=== PATIENT | female | born 1960 | race Caucasian/White ===

== ENCOUNTER → 2020-11-11 09:05 | Outpatient (CLI) | payer BC, SELFPAY ==
--- NOTE | 2020-11-11 | DI.MRI.S_ITS ---
PROCEDURE: MR CERVICAL SPINE WO CON INDICATIONS: Cervicalgia TECHNIQUE: Noncontrast sagittal T1 spin echo and T2 fast spin echo, sagittal STIR, foraminal oblique sagittal T2 fast spin echo, and axial gradient echo or T2 fast spin echo through the cervical spine. COMPARISON: None. FINDINGS: Image quality: Excellent. Alignment and Curvature: Reversal of the normal cervical lordosis. Bone Marrow: No acute fracture identified. Multilevel degenerative endplate sclerosis and spurring. Diffuse facet arthropathy. Spinal Cord: Visualized spinal cord has normal size and signal. No cerebellar tonsillar herniation. Paraspinous Soft Tissues: No paravertebral masses. Prevertebral soft tissues are normal in thickness. C2-C3: No canal or left foraminal narrowing. Mild right foraminal stenosis. C3-C4: Mild canal narrowing. Severe left foraminal stenosis with nerve root compression. Mild to moderate right foraminal narrowing. C4-C5: Mild canal narrowing. Severe right foraminal stenosis with nerve root compression. Mild left foraminal stenosis. C5-C6: No definite canal stenosis. Severe bilateral foraminal stenosis with nerve root compression. C6-C7: Mild canal narrowing. Severe right foraminal stenosis with nerve root compression. Mild left foraminal narrowing. C7-T1: Mild canal narrowing. Severe right foraminal stenosis with nerve root compression. Mild to moderate left foraminal stenosis. IMPRESSION: Severe multilevel bilateral foraminal stenoses as detailed above by spinal level. No high-grade canal narrowing. Reversal of the normal cervical lordosis. Dictated by: Keny Stevenson M.D. on 11/11/2020 at 10:17 Approved by: Keny Stevenson M.D. on 11/11/2020 at 10:21
== END ==
PROVIDERS: PCP Physician Assistant; Referring Provider Physician Assistant; Visit Provider Physician Assistant
DX: M54.12 Radiculopathy, cervical region (principal); M54.2 Cervicalgia; M48.02 Spinal stenosis, cervical region; M62.838 Other muscle spasm; S16.1XXD Strain of muscle, fascia and tendon at neck level, subsequent encounter; S29.019D Strain of muscle and tendon of unspecified wall of thorax, subsequent encounter
CPT/HCPCS: 72141

== ENCOUNTER 2021-02-05 09:44 | Emergency (ER) | payer BC, SELFPAY ==
[2021-02-05] VITALS (8 sets, daily range): BP systolic 121–183; BP diastolic 70–92; PULSE 52–67; RESP 16–21; TEMP 36.8; O2SAT 93–97
--- NOTE | 2021-02-05 09:55 | DI.CT.S_ITS ---
PROCEDURE: CT CERVICAL SPINE WO CON INDICATIONS: Fall, right-sided paraspinal pain TECHNIQUE: Noncontrast 3 mm thick sections acquired from the skull base to the T4 level. Sagittal and coronal reformats were then constructed. For radiation dose reduction, the following was used: automated exposure control, adjustment of mA and/or kV according to patient size. COMPARISON: None. FINDINGS: Image quality: Excellent. Bones: No fractures or dislocations. Visualized superior ribs are intact. Multilevel uncovertebral joint hypertrophy with significant bony foraminal narrowing bilaterally at C5-C6 and C6-C7. Soft tissues: Prevertebral soft tissues are normal in thickness. No paravertebral hematomas. No apical pneumothoraces. IMPRESSION: 1. No evidence acute cervical fracture or dislocation. 2. Cervical spondylitic change. Dictated by: Prosper Lua M.D. on 02/05/2021 at 10:36 Approved by: Prosper Lua M.D. on 02/05/2021 at 10:38
--- NOTE | 2021-02-05 09:55 | DI.CT.S_ITS ---
PROCEDURE: CT FACIAL BONES WO CON INDICATIONS: Fall, swelling around right eye TECHNIQUE: Noncontrast 2.5 mm thick axial images acquired from the mandible through the frontal sinuses, with coronal and sagittal reformatting. For radiation dose reduction, the following was used: automated exposure control, adjustment of mA and/or kV according to patient size. COMPARISON: [facility], CT, CT CERVICAL SPINE WO CON, 02/05/2021, 10:10. FINDINGS: Image quality: Excellent. Bones and teeth: Orbital hampton are intact. Sinus hampton show no fracture or deformity. Nasal bones and septum are intact. Visualized portions of the mandible demonstrate no fractures or subluxation. Zygomatic arches are intact. Pterygoid plates are intact. Visualized portions of the skull base and auditory canals are intact. Sinuses: Paranasal sinuses are aerated, without fluid levels, mucosal thickening, or mucoceles. Mastoid air cells are aerated. Soft tissues: Right periorbital swelling. Unremarkable appearance of right lobe and orbit. Otherwise, no edema, masses, or fluid collections. Shotty bilateral cervical lymph nodes, likely reactive. No soft tissue lacerations or debris. Vascular: Visualized vascular structures appear normal in the absence of contrast. Bony vascular foramina and canals are intact. IMPRESSION: 1. Right periorbital swelling. 2. No displaced facial fracture or mandibular fracture. Dictated by: Prosper Lua M.D. on 02/05/2021 at 10:39 Approved by: Prosper Lua M.D. on 02/05/2021 at 10:44
--- NOTE | 2021-02-05 09:55 | DI.CT.S_ITS ---
PROCEDURE: CT HEAD/BRAIN WO CON INDICATIONS: fall and severe headache TECHNIQUE: Noncontrast 4.5 mm thick angled axial sections acquired from the foramen magnum to the vertex, with coronal and sagittal reformats. For radiation dose reduction, the following was used: automated exposure control, adjustment of mA and/or kV according to patient size. COMPARISON: None. FINDINGS: Image quality: Excellent. CSF spaces: Basal cisterns are patent. No extra-axial fluid collections. The ventricles are symmetric in size and shape. Brain: No intracranial bleeds or masses. There is cerebral volume loss for age, with resultant ventricular and sulcal prominence. There are periventricular and deep white matter chronic small vessel ischemic changes. There is intracranial internal carotid artery atherosclerosis. Skull and face: Calvarium and visualized facial bones appear intact, without suspicious lesions. Sinuses: Visualized sinuses and mastoids are clear. IMPRESSION: No evidence of acute stroke, hemorrhage, or mass. No significant sequelae of acute intracranial trauma. Dictated by: Prosper Lua M.D. on 02/05/2021 at 10:35 Approved by: Prosper Lua M.D. on 02/05/2021 at 10:36
--- NOTE | 2021-02-05 09:55 | DI.RAD.S_ITS ---
PROCEDURE: XR SHOULDER RT MIN 2V INDICATIONS: Fall right-sided shoulder pain TECHNIQUE: 3 views of the shoulder were acquired. COMPARISON: None. FINDINGS: Bones: No acute fracture. Mild AC joint degeneration. Anatomic alignment. Soft tissues: No suspicious soft tissue calcifications. IMPRESSION: No acute fracture. If the patient's pain or other symptoms persist, consider further evaluation with MRI Dictated by: Keny Stevenson M.D. on 02/05/2021 at 10:17 Approved by: Keny Stevenson M.D. on 02/05/2021 at 10:18
--- NOTE | 2021-02-05 09:55 | ED.GENADULT ---
HPI - General Adult General Chief complaint: Syncope Stated complaint: nausea, dizziness, fainting Time Seen by Provider: 02/05/21 09:49 Source: patient Mode of arrival: Ambulatory History of Present Illness HPI narrative: Patient is a 60-year-old female. Was sent over from the walk-in clinic for evaluation of injuries that she sustained yesterday. She states that she was laughing so hard yesterday where she thinks that she passed out. She fell forward. Hit the right side of her face on the ground. She did have a headache. She thinks she was only out for seconds. Since that time she has had a severe headache, right shoulder pain which she has had in the past but she felt like that she has aggravated since the fall. Is also having right-sided neck pain. Bruising around her right eye. No problems seeing. She is not on anticoagulation. Has never had anything like this in the past. Related Data Previous Rx's Medication Instructions Recorded ondansetron 4 mg disintegrating 4 mg PO Q6H PRN #10 tab 02/05/21 tablet Allergies Allergy/AdvReac Type Severity Reaction Status Date / Time codeine AdvReac Intermediate Nausea Verified 02/05/21 09:58 Review of Systems Constitutional Constitutional: Denies fever(s) and Reports headache(s) Eyes Comments: Swelling around the right eye, no vision changes ENT Ears, Nose, Mouth, and Throat: Reports headache(s) Comments: Nosebleed yesterday but none currently. No loose teeth. No missing teeth. Cardiovascular Cardiovascular: Reports system reviewed and no additional complaints, except as documented Respiratory Respiratory: Reports system reviewed and no additional complaints, except as documented Gastrointestinal Gastrointestinal: Reports nausea and Denies vomiting Genitourinary Genitourinary: Reports system reviewed and no additional complaints, except as documented Musculoskeletal Comments: Neck pain, right shoulder pain Integumentary/Breasts Comments: Bruising around right eye Neurologic Neurologic: Reports headache(s) Hematologic/Lymphatic On Anticoagulants: No Patient History Social History lives independently: Yes Smoking Status: Former smoker Exam Initial Vital Signs Initial Vital Signs: Vital Signs Temperature 98.2 F 02/05/21 09:50 Pulse Rate 67 02/05/21 09:50 Respiratory Rate 16 02/05/21 09:50 Blood Pressure 183/90 H 02/05/21 09:50 Pulse Oximetry 97 02/05/21 09:50 Const General: cooperative, comfortable, well developed and well groomed HENMT Head: normal to inspection and atraumatic Ears: hearing grossly normal bilaterally Nose: external nose normal Mouth: oral mucosae normal Teeth and gingiva: dentition normal Eyes Periorbital: periorbital findings abnormal right periorbital swelling, periorbital erythema and periorbital ecchymosis; Negative for no crepitus Pupils: PERRL EOM: EOM intact bilaterally Resp Effort & Inspection: normal respiratory effort Auscultation: clear to auscultation bilaterally Cardio Rate: regular rate Rhythm: regular rhythm GI Inspection: normal to inspection Back/Spine/Pelvis Cervical Spine: cervical muscular tenderness Skin Other: Bruising around the right eye. No active bleeding. Neuro General: patient alert, patient awake, patient oriented x3 and moves all extremities Cranial Nerves: CN's II-XI intact bilaterally Speech: speech normal Gait: normal gait Motor: muscle tone normal throughout Sensory Exam: no sensory deficits noted Extrem Other: Patient with tenderness to palpation throughout the right shoulder. Does have full range of motion of this joint. Her left upper extremity pelvis and bilateral lower extremities are unremarkable. Psych Appearance: grossly normal Scores GCS [place] coma scale eye opening: Spontaneous [place] coma scale verbal response: Orientated [place] coma scale motor response: Obey commands Krystina coma scale total score: 15 Course Orders Ordered: ED Orders 02/05/21 09:55 CT cervical spine wo con Stat CT facial bones wo con Stat CT head/brain wo con Stat XR shoulder RT min 2V Stat 02/05/21 09:57 EKG-12 Lead Stat Vital Signs Vital signs: Vital Signs - 8 hr 02/05/21 09:50 02/05/21 09:51 02/05/21 09:52 Temperature 98.2 F Pulse Rate 67 65 Respiratory Rate 16 Blood Pressure 183/90 H 183/90 H Pulse Oximetry 97 93 95 02/05/21 10:00 02/05/21 10:01 02/05/21 10:21 Temperature Pulse Rate 56 L 60 55 L Respiratory Rate 18 21 20 Blood Pressure 154/92 H 149/87 H Pulse Oximetry 97 97 97 Medical Decision Making Imaging Data Extremity x-ray #1: Radiologist's Impression: [address] [address] XRay Report Signed Patient: NAVIN Raphael MR#: [id number] : 1960 Acct:[id number] Age/Sex: 60 / F Date of Service: 02/05/21 Loc: ED Accession Number: [id number] ?? Procedure: XR shoulder RT min 2V Ordering Provider: Javier Lynn D.O. PROCEDURE:? XR SHOULDER RT MIN 2V ? INDICATIONS:? Fall right-sided shoulder pain ? TECHNIQUE:? 3 views of the shoulder were acquired.? ? COMPARISON:? None. ? FINDINGS:? ? Bones:? No acute fracture.? Mild AC joint degeneration.? Anatomic alignment. ? Soft tissues:? No suspicious soft tissue calcifications.? ? IMPRESSION:? ? No acute fracture. If the patient's pain or other symptoms persist, consider further evaluation with MRI ? ? ? Dictated by: Keny Stevenson M.D. on 02/05/2021 at 10:17 ? ? Approved by: Keny Stevenson M.D. on 02/05/2021 at 10:18? CT scan - head: Radiologist's Impression: [place] [address] CT Scan Report Signed Patient: NAVIN Raphael MR#: [id number] : 1960 Acct:[id number] Age/Sex: 60 / F Date of Service: 02/05/21 Loc: ED Accession Number: [id number] ?? Procedure: CT head/brain wo con Ordering Provider: Javier Lynn D.O. PROCEDURE:? CT HEAD/BRAIN WO CON ? INDICATIONS:? fall and severe headache ? TECHNIQUE:? Noncontrast 4.5 mm thick angled axial sections acquired from the foramen magnum to the vertex, with coronal and sagittal reformats.? For radiation dose reduction, the following was used:? automated exposure control, adjustment of mA and/or kV according to patient size.? ? COMPARISON:? None. ? FINDINGS:? Image quality:? Excellent.? ? CSF spaces:? Basal cisterns are patent.? No extra-axial fluid collections.? The ventricles are symmetric in size and shape.? ? Brain:? No intracranial bleeds or masses.? There is cerebral volume loss for age, with resultant ventricular and sulcal prominence.? There are periventricular and deep white matter chronic small vessel ischemic changes.? There is intracranial internal carotid artery atherosclerosis.? ? Skull and face:? Calvarium and visualized facial bones appear intact, without suspicious lesions.? ? Sinuses:? Visualized sinuses and mastoids are clear.? ? IMPRESSION:? No evidence of acute stroke, hemorrhage, or mass.? No significant sequelae of acute intracranial trauma. ? ? Dictated by: Prosper Lua M.D. on 02/05/2021 at 10:35 ? ? Approved by: Prosper Lua M.D. on 02/05/2021 at 10:36?? CT face: Radiologist's Impression: [address] [address] [address] Scan Report Signed Patient: NAVIN Raphael MR#: [id number] : 1960 Acct:[id number] Age/Sex: 60 / F Date of Service: 02/05/21 Loc: ED Accession Number: [id number] ?? Procedure: CT facial bones wo con Ordering Provider: Javier Lynn D.O. PROCEDURE:? CT FACIAL BONES WO CON ? INDICATIONS:? Fall, swelling around right eye ? TECHNIQUE:? Noncontrast 2.5 mm thick axial images acquired from the mandible through the frontal sinuses, with coronal and sagittal reformatting.? For radiation dose reduction, the following was used:? automated exposure control, adjustment of mA and/or kV according to patient size.? ? COMPARISON:? [facility], CT, CT CERVICAL SPINE WO CON, 02/05/2021, 10:10. ? FINDINGS:? Image quality:? Excellent.? ? Bones and teeth:? Orbital hampton are intact.? Sinus hampton show no fracture or deformity.? Nasal bones and septum are intact.? Visualized portions of the mandible demonstrate no fractures or subluxation.? Zygomatic arches are intact.? Pterygoid plates are intact.? Visualized portions of the skull base and auditory canals are intact.? ? Sinuses:? Paranasal sinuses are aerated, without fluid levels, mucosal thickening, or mucoceles.? Mastoid air cells are aerated.? ? Soft tissues:? Right periorbital swelling.? Unremarkable appearance of right lobe and orbit.? Otherwise, no edema, masses, or fluid collections.? Shotty bilateral cervical lymph nodes, likely reactive.? No soft tissue lacerations or debris.? ? Vascular:? Visualized vascular structures appear normal in the absence of contrast.? Bony vascular foramina and canals are intact.? ? IMPRESSION:? 1. Right periorbital swelling. 2. No displaced facial fracture or mandibular fracture.? ? ? Dictated by: Prosper Lua M.D. on 02/05/2021 at 10:39 ? ? Approved by: Prosper Lua M.D. on 02/05/2021 at 10:44?? CT - cervical spine: Radiologist's Impression: [place] [address] CT Scan Report Signed Patient: NAVIN Raphael MR#: [id number] : 1960 Acct:[id number] Age/Sex: 60 / F Date of Service: 02/05/21 Loc: ED Accession Number: [id number] ?? Procedure: CT cervical spine wo con Ordering Provider: Javier Lynn D.O. PROCEDURE:? CT CERVICAL SPINE WO CON ? INDICATIONS:? Fall, right-sided paraspinal pain ? TECHNIQUE:? Noncontrast 3 mm thick sections acquired from the skull base to the T4 level.? Sagittal and coronal reformats were then constructed.? For radiation dose reduction, the following was used:? automated exposure control, adjustment of mA and/or kV according to patient size.? ? COMPARISON:? None. ? FINDINGS:? Image quality:? Excellent.? ? Bones:? No fractures or dislocations.? Visualized superior ribs are intact.? Multilevel uncovertebral joint hypertrophy with significant bony foraminal narrowing bilaterally at C5-C6 and C6-C7. ? Soft tissues:? Prevertebral soft tissues are normal in thickness.? No paravertebral hematomas.? No apical pneumothoraces.? ? ? IMPRESSION:? ? 1. No evidence acute cervical fracture or dislocation. ? 2. Cervical spondylitic change.? Dictated by: Prosper Lua M.D. on 02/05/2021 at 10:36 ? ? Approved by: Prosper Lua M.D. on 02/05/2021 at 10:38 MDM Narrative Medical decision making narrative: Patient is alert oriented x3. GCS of 15. CT scan shows no signs of acute pathology. She does have bruising around the right eye. She also has a concussion based on her physical exam and presenting symptoms. I did discuss this with her. Will attempt to treat her symptoms with medications to include Zofran and Tylenol. She was given information with regard to concussions. She was given return precautions. She expressed understanding and agreement. Discharge Plan Departure Patient Disposition: Home Clinical Impression: Concussion, Contusion of eye, right, Syncope Instructions: DI for Concussion, DI for Syncope in Adults (Fainting) Activity Restrictions/Additional Instructions: All of your CT scans and x-rays today do not show any signs of fractures. You do have a concussion based on your symptoms today. You can sleep like normal in eat like normal. You can take Tylenol for any headaches. Use the nausea medication as needed. Contact your primary doctor for a follow-up. Return to the emergency department for any new or worsening symptoms Prescriptions: New ondansetron 4 mg tablet,disintegrating 4 mg PO Q6H PRN (Reason: nausea and vomiting) Qty: 10 RF: 0 Referrals: Tracy Jha PA-C [Primary Care Provider] -
== END 2021-02-05 11:08 | disposition home or self-care (01) ==
PROVIDERS: Emergency Provider Emergency Medicine; PCP Physician Assistant
DX: R55 Syncope and collapse (principal); M54.2 Cervicalgia; M25.511 Pain in right shoulder; S05.11XA Contusion of eyeball and orbital tissues, right eye, initial encounter; G44.309 Post-traumatic headache, unspecified, not intractable; F07.81 Postconcussional syndrome; W18.30XA Fall on same level, unspecified, initial encounter
CPT/HCPCS: 36415; 70450; 70486; 72125; 73030; 99284

== ENCOUNTER → 2021-12-29 16:02 | Outpatient (CLI) | payer BC, OTHER, SELFPAY ==
--- NOTE | 2021-12-29 16:06 | DI.RAD.S_ITS ---
PROCEDURE: XR CHEST 2V INDICATIONS: Cough TECHNIQUE: 2 views of the chest were acquired. COMPARISON: None. FINDINGS: Surgical changes and devices: None. Lungs and pleura: Lungs are clear. No pleural effusions or pneumothorax. Mediastinum: Mediastinal contours are normal. Heart size is normal. Bones and chest wall: No suspicious bony abnormalities. Soft tissues appear unremarkable. Age-indeterminate mild wedging of some vertebral bodies. IMPRESSION: No acute radiographic abnormality. Dictated by: Andres Cerrato M.D. on 12/29/2021 at 16:39 Approved by: Andres Cerrato M.D. on 12/29/2021 at 16:40
== END ==
PROVIDERS: PCP Internal Medicine; Referring Provider Nurse Practitioner Family; Visit Provider Nurse Practitioner Family
DX: R05.9 Cough, unspecified (principal)
CPT/HCPCS: 71046

== ENCOUNTER → 2022-02-03 15:42 | Outpatient (CLI) | payer BC, OTHER, SELFPAY ==
--- NOTE | 2022-02-03 | DI.RAD.S_ITS ---
PROCEDURE: XR KNEE LT 3V INDICATIONS: LEFT KNEE PAIN TECHNIQUE: 4 views of the knee were acquired. COMPARISON: None. FINDINGS: Bones: No fractures or dislocations. 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 No suspicious bony lesions. Soft tissues: No joint effusion. No suspicious soft tissue calcifications. 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 No fracture or dislocation. No significant joint effusion. Dictated by: Ba Christie M.D. on 02/03/2022 at 16:40 Approved by: Ba Christie M.D. on 02/03/2022 at 16:40
== END ==
PROVIDERS: PCP Internal Medicine; Referring Provider Student in an Organized Health Care Education/Training Program; Visit Provider Student in an Organized Health Care Education/Training Program
DX: M25.562 Pain in left knee (principal); M17.12 Unilateral primary osteoarthritis, left knee
CPT/HCPCS: 73564

== ENCOUNTER → 2022-06-09 08:24 | Outpatient (CLI) | payer BC, OTHER, SELFPAY ==
[2022-06-09 08:55] LABS: Add Manual Diff / Slide Review NO; Basophils Absolute Auto 100 /uL (0-100); Basophils Percent Auto 1.4 % (0-2); Eosinophils Absolute Auto 600 /uL (0-450); Eosinophils Percent Auto 7.9 % (2-4); Hematocrit 38.4 % (36-46); Hemoglobin 12.4 g/dL (12.0-16.0); Lymphocytes Absolute Auto 2100 /uL (1100-4500); Lymphocytes Percent Auto 27.2 % (25-40); Mean Corpuscular HGB Conc 32.3 % (30-36); Mean Corpuscular Hemoglobin 28.3 PG (26-34); Mean Corpuscular Volume 87.7 fL (80-100); Monocytes Absolute Auto 500 /uL (0-900); Monocytes Percent Auto 5.8 % (3-14); Neutrophils Absolute Auto 4500 /uL (1500-7000); Neutrophils Percent Auto 57.7 % (50-75); Platelet Count 270 X10^3/uL (150-400); Red Blood Cell Count 4.38 X10^6/uL (4.0-5.2); Red Cell Distribution Width 14.4 % (11.6-14.8); White Blood Cell Count 7.8 X10^3/uL (4.5-11.0)
[2022-06-09 09:43] LABS: Alanine Aminotransferase 23 IU/L (<35); Alkaline Phosphatase 83 U/L (38-126); Aspartate Aminotransferase 31 IU/L (14-36); Bilirubin Total 0.4 mg/dL (0.2-1.3); Blood Urea Nitrogen 15 mg/dL (7-17); Calcium 9.1 mg/dL (8.4-10.2); Carbon Dioxide 29 mmol/L (22-32); Chloride 104 mmol/L (98-107); Cholesterol 183 mg/dL (140-199); Estimated Glomerular Filt Rate > 60 mL/min (>60); Glucose 94 mg/dL (80-110); HDL Cholesterol 61 mg/dL (40-60); LDL Cholesterol Calculated 99 mg/dL (<100); Potassium 3.8 mmol/L (3.4-5.1); Sodium 138 mmol/L (137-145); Total Protein 7.1 g/dL (6.3-8.2); Triglycerides 117 mg/dL (35-150)
[2022-06-09 10:14] LABS: TSH w/ Reflex to FT4 1.57 uIU/mL (0.47-4.68)
[2022-06-12 16:00] LABS: Albumin 3.9 g/dL (3.5-5.0); Albumin Globulin Ratio 1.2 (1.0-2.8); Globulin 3.2 g/dL (1.7-4.1); HEMOLYSIS 16 (0-50)
== END ==
PROVIDERS: PCP Family Medicine; Referring Provider Family Medicine; Visit Provider Family Medicine
DX: E78.00 Pure hypercholesterolemia, unspecified (principal); I10 Essential (primary) hypertension; K21.9 Gastro-esophageal reflux disease without esophagitis; Z13.9 Encounter for screening, unspecified
CPT/HCPCS: 36415; 80053; 80061; 84443; 85025

== ENCOUNTER → 2022-08-27 14:54 | Outpatient (CLI) | payer BC, OTHER, SELFPAY ==
--- NOTE | 2022-08-27 | DI.MG.S_ITS ---
BILATERAL DIGITAL SCREENING MAMMOGRAM 3D/2D WITH CAD: 08/27/2022 CLINICAL: Routine screening. Comparison is made to exams dated: 06/24/2020 mammogram, 03/06/2019 mammogram, and 02/27/2019 mammogram - [facility]. There are scattered areas of fibroglandular density in both breasts (category b / 25%-50% glandular tissue). Current study was also evaluated with a Computer Aided Detection (CAD) system. There is a biopsy clip in the left breast. No significant masses, calcifications, or other findings are seen in either breast. There has been no significant interval change. IMPRESSION: NEGATIVE There is no mammographic evidence of malignancy. A 1 year screening mammogram is recommended. Based on the Tyrer Cuzick model (a risk assessment model) the patient's lifetime risk is 4.8% and her 10 year risk is 2.1%. According to the ACR, ACS, and NCCN guidelines, an annual breast MRI exam along with mammogram is recommended if the patient's lifetime risk is 20% or greater. This exam was interpreted at Station ID: [id number]. NOTE: For mammograms, a report in lay terms will be sent to the patient. Approximately 15% of breast malignancies will not be visualized mammographically. In the management of a palpable breast mass, a negative mammogram must not discourage biopsy of a clinically suspicious lesion. Electronically Signed By: Merrill perkins/zain:08/27/2022 16:21:59 letter sent: Normal Exam ACR BI-RADS Category 1: Negative [id number]
== END ==
PROVIDERS: PCP Family Medicine; Referring Provider Family Medicine; Visit Provider Family Medicine
DX: Z12.31 Encounter for screening mammogram for malignant neoplasm of breast (principal)
CPT/HCPCS: 77063; 77067

== ENCOUNTER → 2022-09-14 09:17 | Outpatient (CLI) | payer BC, OTHER, SELFPAY ==
--- NOTE | 2022-09-14 09:18 | DI.CT.S_ITS ---
PROCEDURE: CT CHEST WO CON INDICATIONS: Low dose chest CT TECHNIQUE: Noncontrast 2.0-2.5 mm thick sections acquired from the pulmonary apices to the posterior costophrenic angles. 7 mm thick axial MIP, and 5 mm coronal and sagittal reformats were then acquired. A low radiation dose technique was utilized. COMPARISON: None. FINDINGS: Image quality: Diagnostic, given the low radiation dose technique. Lungs and pleura: No suspicious lung nodules. No pulmonary infiltrate or pleural effusion. Mediastinum: Heart size is normal. Mild coronary artery calcification. No pericardial effusion. No mediastinal adenopathy by size criteria. Thoracic aorta and central pulmonary arteries are normal in size. Esophagus is normal in caliber. No hiatal hernia. Bones and chest wall: No suspicious bony lesions. No vertebral body compression fractures. Moderate degenerative changes in thoracic spine. No axillary or supraclavicular adenopathy by size criteria. Thyroid gland is normal. Abdomen: Visualized upper abdomen solid organs and bowel loops appear normal in the absence of contrast. IMPRESSION: No suspicious lung nodules. LUNG-RADS 1; recommend annual screening lung CT in 12 months. Dictated by: Jody Terry M.D. on 09/14/2022 at 9:35 Approved by: Jody Terry M.D. on 09/14/2022 at 9:38
== END ==
PROVIDERS: PCP Family Medicine; Referring Provider Family Medicine; Visit Provider Family Medicine
DX: J44.9 Chronic obstructive pulmonary disease, unspecified (principal); I25.10 Atherosclerotic heart disease of native coronary artery without angina pectoris; R05.9 Cough, unspecified; Z87.891 Personal history of nicotine dependence
CPT/HCPCS: 71250

== ENCOUNTER 2022-10-13 07:49 | Day surgery (SDC) | payer BC, OTHER, SELFPAY ==
[2022-10-13] MEDS: LACTATED RINGERS 1,000 ML 200 ML IV (08:08)
[2022-10-13 08:12] VITALS: BP 122/84; PULSE 82; RESP 20; TEMP 36.1; O2SAT 96; BMI 35.9
--- NOTE | 2022-10-13 08:52 | PM.HP.1 ---
History of Present Illness History of Present Illness Date Patient Seen: 10/13/22 Time Patient Seen: 08:52 Chief complaint: PAC Narrative: 62-year-old woman personal history of colonic polyps here for colorectal screening by colonoscopy. Last colonoscopy approximately 7 years ago. No personal or family history of colon cancer. On further history denies any recent gastrointestinal symptoms. No nausea, vomiting, abdominal pain, loss of appetite, unexplained weight loss, change in bowel habits, or blood per rectum. [facility] Medical History Actinic keratosis (~2015) Ankle pain Carpal tunnel syndrome Cervical radiculopathy Cervical spine disease Cervical spondylosis Chronic back pain Colon polyps Congenital dysplasia of hips, bilateral Diverticular disease Fractures (~2009) GERD (gastroesophageal reflux disease) Hearing loss Hematuria (~1994) Hyperlipidemia Hypertension (~2009) Ovarian cyst Positive PPD Well adult exam Surgical History Anesthesia History of carpal tunnel release (~01/22/22) History of section (~1982) History of hysterectomy (~1984) Status post osteotomy (~2002) Trigger thumb of right hand (~05/26/22) Social History (System 02/06/21 @ 07:17 by Lady Trinity Estrada) household members: spouse lives independently: Yes Smoking Status: Former smoker alcohol intake: current Meds Home Medications and Allergies Home Medications Medication Instructions Recorded Confirmed Type atorvastatin 10 mg tablet 10 mg PO BEDTIME #90 tabs 06/16/22 10/13/22 Rx hydrochlorothiazide 12.5 mg tablet 12.5 mg PO DAILY #90 tabs 06/16/22 10/13/22 Rx losartan 50 mg tablet 50 mg PO DAILY #90 tabs 06/16/22 10/13/22 Rx gabapentin 300 mg capsule 300 mg PO TID #90 caps 07/17/22 10/13/22 Rx amlodipine 5 mg tablet 5 mg PO BID #90 tabs 09/17/22 10/13/22 Rx omeprazole 40 mg capsule,delayed 40 mg PO DAILY #90 caps 09/18/22 10/13/22 Rx release Allergies Allergy/AdvReac Type Severity Reaction Status Date / Time aspirin Allergy Intermediate Verified 10/13/22 08:09 adhesive tape AdvReac Severe Rash/Itch Verified 10/13/22 08:09 codeine AdvReac Intermediate Nausea Verified 10/13/22 08:09 Exam Vital Signs (past 8 hours): - 10/13/22 08:12 Temperature 96.9 F L Pulse Rate 82 Respiratory Rate 20 Blood Pressure 122/84 Pulse Oximetry 96 Oxygen Delivery Method Room Air Oxygen Delivery Method Room Air Narrative Exam Narrative: General adult woman alert oriented no acute distress Abdomen soft nontender nondistended. Assessment & Plan Assessment and plan (1) Colon polyps: Qualifiers: Colon polyp type: adenomatous Colon location: unspecified part of colon Qualified Code(s): D12.6 - Benign neoplasm of colon, unspecified Status: Acute Assessment & Plan narrative: The patient requires colorectal screening and colonoscopy is recommended. Technical details were discussed. Risks, benefits, alternatives explained. Risks including but not limited to myocardial infarction, aspiration, bleeding, pain, missed lesion, incomplete examination, need for further radiographic studies, colonic perforation, and need for major abdominal surgery were discussed. All questions were answered to their satisfaction, and they are in agreement with this plan.
--- NOTE | 2022-10-13 09:03 | P.OP.COLON_ITS ---
Operative Date/Time/Diagnoses Date of procedure: 10/13/22 Time of procedure: 09:04 Pre-op diagnosis: Personal history of colonic polyps Procedure & Clinicians Study performed: Colonoscopy Same procedure as scheduled: Yes Indications: 62-year-old woman here for colorectal screening personal history of colonic polyps. Surgeon: Dylon Aguilar Procedure Notes Procedure in detail: The history and physical was performed/updated and the patient is ASA class is 2. The procedure was discussed in detail with the patient. Potential risks complications including infection, bleeding, missed diagnosis, perforation, need for surgery, and were explained. Their questions were answered and informed consent was obtained. Patient was brought to the procedure room and placed standard monitoring equipment. The patient's vital signs were monitored continuously throughout the entire procedure. Prior to starting time-out was performed. The patient was placed in the left lateral recumbent position. Procedural sedation was administered by anesthesia. Examination began with a thorough inspection of the perianal area there was no evidence of fissures, fistulae, external hemorrhoids or cutaneous malignancy. The colonoscopy scope was then placed into the anal ca nal and was advanced to the cecum, which was identified by the ileocecal valve, the appendiceal orifice and the confluence of the taenia. The scope was then slowly withdrawn examining colon thoroughly in all directions, irrigating it of any residual stool. Colon was free from masses or polyps. Mild diverticulosis within the sigmoid colon and grade 1 internal hemorrhoids on retroflexion within the rectum. The patient tolerated the procedure well. They will be discharged once criteria are met. The prep was of good/excellent quality. The withdrawl time was 8 minutes. Specimen(s): none sent Impression: Normal colonoscopy Post-procedure Recommendations: Colonoscopy in 10 years and High fiber diet Disposition: same day surgery
[2022-10-13 09:29] VITALS: BP 128/87; PULSE 76; RESP 19; TEMP 36.5; O2SAT 96
[2022-10-13 09:33] VITALS: BP 127/72; BP 132/81; PULSE 74; PULSE 91; RESP 19; RESP 24; TEMP 36.6; O2SAT 98
[2022-10-13 09:44] VITALS: BP 146/91; PULSE 76; RESP 19; O2SAT 97
[2022-10-13 09:49] VITALS: BP 139/86; PULSE 80; RESP 18; O2SAT 97
== END 2022-10-13 10:11 | disposition home or self-care (01) ==
PROVIDERS: PCP Family Medicine; Referring Provider Surgery; Visit Provider Surgery
PROC: 0DJD8ZZ Inspection of Lower Intestinal Tract, Via Natural or Artificial Opening Endoscopic (ICD-10-PCS; CPT 45378; principal; 2022-10-13 09:00)
DX: Z12.11 Encounter for screening for malignant neoplasm of colon (principal); Z86.010 Personal history of colon polyps; K57.30 Diverticulosis of large intestine without perforation or abscess without bleeding; K64.0 First degree hemorrhoids
CPT/HCPCS: 45378; J2704

== ENCOUNTER → 2023-09-22 07:30 | Outpatient (CLI) | payer BC, OTHER, SELFPAY ==
--- NOTE | 2023-09-22 07:32 | DI.MG.S_ITS ---
BILATERAL DIGITAL SCREENING MAMMOGRAM 3D/2D WITH CAD: 09/22/2023 CLINICAL: Routine screening. Comparison is made to exams dated: 08/27/2022 mammogram - [facility], 06/24/2020 mammogram, and 03/06/2019 mammogram - [facility]. There are scattered areas of fibroglandular density in both breasts (category b / 25%-50% glandular tissue). Current study was also evaluated with a Computer Aided Detection (CAD) system. There is a biopsy clip in the left breast. No significant masses, calcifications, or other findings are seen in either breast. There has been no significant interval change. IMPRESSION: NEGATIVE There is no mammographic evidence of malignancy. A 1 year screening mammogram is recommended. Based on the Tyrer Cuzick model (a risk assessment model) the patient's lifetime risk is 4.7% and her 10 year risk is 2.1%. According to the ACR, ACS, and NCCN guidelines, an annual breast MRI exam along with mammogram is recommended if the patient's lifetime risk is 20% or greater. This exam was interpreted at Station ID: [id number]. NOTE: For mammograms, a report in lay terms will be sent to the patient. Approximately 15% of breast malignancies will not be visualized mammographically. In the management of a palpable breast mass, a negative mammogram must not discourage biopsy of a clinically suspicious lesion. Electronically Signed By: Asia hazel/zain:09/22/2023 11:29:33 letter sent: Normal Exam ACR BI-RADS Category 1: Negative [id number]
--- NOTE | 2023-09-22 07:32 | DI.CT.S_ITS ---
PROCEDURE: CT LUNG LOW DOSE SCREENING INDICATIONS: 1 year f/u screening TECHNIQUE: Noncontrast 2.0-2.5 mm thick sections acquired from the pulmonary apices to the posterior costophrenic angles. 7 mm thick axial MIP, and 5 mm coronal and sagittal reformats were then acquired. For radiation dose reduction, the following was used: automated exposure control, adjustment of mA and/or kV according to patient size. COMPARISON: [facility], CT, [facility], 09/14/2022, 9:22. FINDINGS: Image quality: Diagnostic. Lower Neck: No enlarged lymph nodes. Thyroid: No thyroid nodules which require sonographic follow up, per consensus guidelines. Axillae: No enlarged lymph nodes. Chest Wall: Unremarkable. Bones: Unremarkable. Lungs and Pleura: No pneumothorax or pleural effusions. No consolidation or suspicious nodules. Heart: Heart size is normal. No pericardial effusion. Severe LAD calcifications for age. Thoracic Vessels: The aorta and pulmonary arteries demonstrate normal size. Mediastinum and Nusrat: No enlarged lymph nodes. Esophagus: No wall thickening. No hiatal hernia. Upper Abdomen: Visualized upper abdomen solid organs and bowel loops appear normal. IMPRESSION: No suspicious pulmonary nodules. LUNG-RADS 1; continued annual screening, if eligible. Clinically Significant Non-pulmonary Findings: Marked coronary artery calcifications for age. Correlate with risk factors and advise counseling. Dictated by: Rayshawn Desouza M.D. on 09/22/2023 at 9:24 Approved by: Rayshawn Desouza M.D. on 09/22/2023 at 9:29
[2023-09-22 08:40] LABS: Add Manual Diff / Slide Review NO; Basophils Absolute Auto 200 /uL (0-100); Basophils Percent Auto 2.3 % (0-2); Eosinophils Absolute Auto 600 /uL (0-450); Eosinophils Percent Auto 7.4 % (2-4); Hematocrit 38.7 % (36-46); Hemoglobin 12.8 g/dL (12.0-16.0); Lymphocytes Absolute Auto 2800 /uL (1100-4500); Lymphocytes Percent Auto 33.5 % (25-40); Mean Corpuscular Hemoglobin 28.6 PG (26-34); Mean Corpuscular Volume 86.7 fL (80-100); Monocytes Absolute Auto 600 /uL (0-900); Monocytes Percent Auto 7.2 % (3-14); Neutrophils Absolute Auto 4100 /uL (1500-7000); Neutrophils Percent Auto 49.6 % (50-75); Platelet Count 272 X10^3/uL (150-400); Red Blood Cell Count 4.46 X10^6/uL (4.0-5.2); Red Cell Distribution Width 15.3 % (11.6-14.8); White Blood Cell Count 8.2 X10^3/uL (4.5-11.0)
[2023-09-22 09:02] LABS: Alanine Aminotransferase 16 IU/L (<35); Albumin 4.6 g/dL (3.5-5.0); Albumin Globulin Ratio 1.4 (1.0-2.8); Alkaline Phosphatase 78 U/L (38-126); Aspartate Aminotransferase 27 IU/L (14-36); Bilirubin Total 0.5 mg/dL (0.2-1.3); Blood Urea Nitrogen 16 mg/dL (7-17); Calcium 9.5 mg/dL (8.4-10.2); Carbon Dioxide 34 mmol/L (22-32); Chloride 103 mmol/L (98-107); Cholesterol 262 mg/dL (140-199); Estimated Glomerular Filt Rate > 60 mL/min (>60); Globulin 3.3 g/dL (1.7-4.1); Glucose 89 mg/dL (80-110); HDL Cholesterol 63 mg/dL (40-60); HEMOLYSIS < 15 (0-50); LDL Cholesterol Calculated 173 mg/dL (<100); Potassium 3.6 mmol/L (3.4-5.1); Sodium 140 mmol/L (137-145); Total Protein 7.9 g/dL (6.3-8.2); Triglycerides 128 mg/dL (35-150); Uric Acid 6.1 mg/dL (2.5-6.2)
[2023-09-22 09:29] LABS: Thyroid Stimulating Hormone 1.64 uIU/mL (0.47-4.68)
== END ==
PROVIDERS: PCP Family Medicine; Referring Provider Family Medicine; Visit Provider Family Medicine
DX: Z12.31 Encounter for screening mammogram for malignant neoplasm of breast (principal); R92.323 Mammographic fibroglandular density, bilateral breasts; Z12.2 Encounter for screening for malignant neoplasm of respiratory organs; Z87.891 Personal history of nicotine dependence; I25.10 Atherosclerotic heart disease of native coronary artery without angina pectoris; I10 Essential (primary) hypertension; E78.5 Hyperlipidemia, unspecified; K21.9 Gastro-esophageal reflux disease without esophagitis
CPT/HCPCS: 36415; 71271; 77063; 77067; 80053; 80061; 84443; 84550; 85025

== ENCOUNTER → 2023-11-29 09:04 | Outpatient (CLI) | payer BC, OTHER, SELFPAY ==
--- NOTE | 2023-11-29 09:06 | DI.ECHO.S_ITS ---
[facility] : : [address] : : [place] : : [id number] : : Phone: [phone] Echocardiogram Report + + :Name: NAVIN VARGAS Study Date: 11/29/2023 Height: 64 in : [facility] ReadingLocation: Weight: 201 lb : : Gender: Female BSA: 2.0 m2 : :: 1960 Age: 63 yrs BP: 129/93 mmHg: :Reason For Study: CORONARY ARTERY DISEASE : :Ordering Physician: VINCE CHRISTIE Performed By: Ebony Isaac : :Referring: VINCE CHRISTIE : + + Interpretation Summary 1. The left ventricular contractility is normal. Estimated ejection fraction is greater than 55% with no segmental wall motion abnormalities. No LVH. Normal diastolic function. 2. The right ventricular contractility is normal. 3. All cardiac chambers are of normal size. 4. No significant valvular abnormalities noted. 5. No obvious intracardiac shunts noted. 6. No obvious intracardiac masses nor thrombi appreciated. 7. No hemodynamically significant pericardial effusion present. Conclusion: Normal biventricular function with no significant structural abnormalities. Procedure: A two-dimensional transthoracic echocardiogram with color flow and Doppler was performed. The study quality was technically adequate. There is no prior echocardiogram noted for this patient. The patient was in sinus rhythm with heart rates between 57-75 bpm during the exam. Left Ventricle: The left ventricle is normal in size and wall thickness. The ejection fraction is estimated to be 60-65%. Right Ventricle: The right ventricle is normal in size and function. Atria: The left atrial size is normal. The right atrium is normal in size. There is no Doppler evidence for an interatrial shunt. Mitral Valve: The mitral valve is normal in structure and function. There is trace mitral regurgitation. Aortic Valve: The aortic valve is trileaflet. The aortic valve opens well. There is no aortic valve stenosis. No aortic regurgitation is present. Tricuspid Valve: The tricuspid valve is normal in structure and function. There is trace tricuspid regurgitation. Pulmonic Valve: The pulmonic valve leaflets are thin and pliable; valve motion is normal. There is no pulmonic valvular regurgitation. Great Vessels: The aortic root is normal size. The dimensions of the ascending aorta are normal. The IVC is of normal diameter and collapses greater than 50% with a sniff. This suggests a low right atrial pressure of 3 mm Hg. Pericardium/ Pleura There is no pericardial effusion. There is no pleural effusion. MMode/2D Measurements & Calculations LVIDd: 4.6 cm LVOT diam: 2.0 cm LVIDs: 3.0 cm Ao root diam: 3.0 cm FS: 34.0 % asc Aorta Diam: 2.8 cm EPSS: 0.88 cm Ao Arch Diam (Prox Trans): 2.5 cm IVSd: 0.80 cm LVPWd: 0.94 cm LV wyatt. diameter/BSA (cm/m^2): 2.4 LV sys. diameter/BSA (cm/m^2): 1.6 LA A2 area: 14.9 cm2 RA long axis: 4.8 cm LA A4 area: 18.5 cm2 RA area: 15.0 cm2 LA length (vol): 5.1 cm RA vol: 39.7 ml LA vol: 45.3 ml RA : 20.2 ml/m2 LA vol index: 23.1 ml/m2 IVC diam: 1.8 cm RVD1 (basal): 4.0 cm TAPSE: 2.0 cm Doppler Measurements & Calculations Ao V2 max: 146.0 cm/sec LVOT Max Luis: 91.5 cm/sec Ao V2 mean: 105.6 cm/sec LV V1 max P.3 mmHg Ao max P.5 mmHg LV V1 VTI: 20.9 cm Ao mean P.9 mmHg CLAYTON(I,D): 1.9 cm2 Ao V2 VTI: 34.6 cm CLAYTON(V,D): 1.9 cm2 sev ratio: 0.61 CLAYTON indexed to BSA (cm^2/m^2): 0.96 MV E max luis: 71.0 cm/sec PA V2 max: 108.5 cm/sec MV A max luis: 72.2 cm/sec PA V2 mean: 72.5 cm/sec MV E/A: 0.98 PA mean P.4 mmHg Med Peak E' Luis: 10.8 cm/sec PA pr(Accel): 34.5 mmHg E/E' med: 6.6 Lat Peak E' Luis: 11.8 cm/sec E/E' lat: 6.0 E/e' average: 6.3 MV dec time: 0.23 sec SV(OT): 65.1 ml Reading Physician:
== END ==
LOC: ECHO 09:05
PROVIDERS: PCP Family Medicine; Referring Provider Internal Medicine; Visit Provider Internal Medicine
DX: I25.10 Atherosclerotic heart disease of native coronary artery without angina pectoris (principal)
CPT/HCPCS: 93306

== ENCOUNTER 2024-08-14 13:23 | Emergency (ER) | payer MEDICARE, BC, OTHER, SELFPAY ==
[2024-08-14 13:39] VITALS: BP 130/77; PULSE 63; RESP 17; TEMP 36.9; O2SAT 96; BMI 31.1
--- NOTE | 2024-08-14 13:46 | DI.RAD.S_ITS ---
PROCEDURE: XR HIP W PEL IF DONE RT 2V INDICATIONS: leg pain x 10 days TECHNIQUE: 2 views of the hip were acquired. COMPARISON: None. FINDINGS: Bones: No fractures or dislocations. No suspicious bony lesions. The visualized pelvic ring appears intact. Surgical fixation of the left pelvic wing. Nonuniform joint space narrowing and osteophytic lipping of the acetabuli. Soft tissues: No suspicious soft tissue calcifications or masses. IMPRESSION: No acute bony abnormality. Mild bilateral hip osteoarthritis. Dictated by: Rayshawn Desouza M.D. on 08/14/2024 at 14:39 Approved by: Rayshawn Desouza M.D. on 08/14/2024 at 14:40
--- NOTE | 2024-08-14 14:42 | ED_ITS ---
HPI - Extremity Problem <Maribel Sebastian PA-C - Last Filed: 08/14/24 17:07> General Chief complaint: Extremity Problem,Nontraumatic Stated complaint: Pain in Groin area, Bruise in right leg Time Seen by Provider: 08/14/24 14:12 Source: patient Mode of arrival: Wheelchair History of Present Illness HPI Narrative: 64-year-old female with past medical history congenital dysplasia of hips, chronic back pain with sciatica, atherosclerosis, hyperlipidemia, hypertension presents to the ED with 10 days of right-sided groin and leg pain. Patient states that she 1st noticed the pain when she was on a flight 10 days ago. Patient soon thereafter noted a bruise to the medial, right upper thigh. Patient does not recall any trauma. No history of blood clots. Patient does have a history of lower back pain with sciatica on the right side. Patient takes gabapentin for neuropathy. Not on a blood thinner. No chest pain, shortness of breath, fever, chills, numbness, tingling, weakness. No urinary difficulties. No saddle paresthesias. Related Data Home Medications Medication Instructions Recorded Confirmed evolocumab 140 mg/mL subcutaneous 140 mg SUBCUT Q2W 01/18/24 08/14/24 pen injector (Hayden Flores) cyclosporine 0.05 % eye drops in a drp ophthalmic (eye) 08/14/24 08/14/24 dropperette latanoprost 0.005 % eye drops 1 drp EYE-BOTH QPM 08/14/24 08/14/24 ursodiol 500 mg tablet 500 mg PO BID 08/14/24 08/14/24 Previous Rx's Medication Instructions Recorded losartan 50 mg tablet 50 mg PO DAILY #90 tabs 09/23/23 omeprazole 40 mg capsule,delayed 40 mg PO DAILY #90 caps 12/06/23 release amlodipine 5 mg tablet 5 mg PO BID #180 tabs 03/14/24 gabapentin 300 mg capsule 300 mg PO TID #90 caps 06/20/24 hydrochlorothiazide 25 mg tablet 25 mg PO DAILY #90 tabs 06/28/24 Allergies Allergy/AdvReac Type Severity Reaction Status Date / Time aspirin Allergy Intermediate Hx of Verified 08/14/24 13:39 Ulcers adhesive tape AdvReac Severe Rash/Itch Verified 08/14/24 13:39 codeine AdvReac Intermediate Nausea Verified 08/14/24 13:39 hydrocodone AdvReac Vomiting Verified 08/14/24 13:39 oxycodone AdvReac Vomiting Verified 08/14/24 13:39 Review of Systems <Maribel Sebastain PA-C - Last Filed: 08/14/24 17:07> Constitutional Constitutional: Denies chills, Denies fatigue, Denies fever(s), Denies frequent falls, Denies lethargy and Denies weakness Eyes Eyes: Denies change in vision, Denies eye discharge, Denies irritation and Denies loss of vision ENT Ears, Nose, Mouth, and Throat: Denies change in voice, Denies dizziness, Denies neck pain, Denies sore throat and Denies throat swelling Cardiovascular Cardiovascular: Denies chest pain, Denies irregular heart rhythm, Denies lightheadedness, Denies palpitations, Denies dyspnea, Denies dyspnea on exertion and Denies orthopnea Respiratory Respiratory: Denies cough, Denies dyspnea, Denies dyspnea on exertion and Denies wheezing Gastrointestinal Gastrointestinal: Denies abdominal pain, Denies change in bowel habits, Denies diarrhea, Denies nausea and Denies vomiting Musculoskeletal Musculoskeletal: Denies neck pain and Denies numbness Comments: Right-sided groin and upper leg pain Integumentary/Breasts Skin/Breast: Denies pruritus, Denies erythema, Denies rash and Denies wounds Neurologic Neurologic: Denies behavioral changes, Denies confusion, Denies dizziness, Denies frequent falls, Denies loss of vision, Denies numbness and Denies weakness Psychiatric Psychiatric: Denies anxiety, Denies behavioral changes, Denies confusion, Denies depression, Denies homicidal ideation and Denies suicidal ideation Endocrine Endocrine: Denies fatigue, Denies flushing and Denies palpitations Hematologic/Lymphatic Hematologic/Lymphatic: Denies easy bruising Allergic/Immunologic Allergic/Immunologic: Denies urticaria, Denies throat swelling and Denies wheezing Patient History <Maribel Sebastian PA-C - Last Filed: 08/14/24 17:07> Medical History Atherosclerosis Spider veins of both lower extremities Leg edema Well adult exam Congenital dysplasia of hips, bilateral Actinic keratosis (~2015) Fractures (~2009) Chronic back pain Cervical spine disease Carpal tunnel syndrome Ankle pain Positive PPD Hearing loss Ovarian cyst Hematuria (~1994) Diverticular disease Colon polyps Cervical radiculopathy GERD (gastroesophageal reflux disease) Cervical spondylosis Hyperlipidemia Hypertension (~2009) Surgical History Anesthesia History of section (~1982) History of hysterectomy (~1984) Status post osteotomy (~2002) History of carpal tunnel release (~01/22/22) Trigger thumb of right hand (~05/26/22) Social History household members: spouse lives independently: Yes Smoking Status: Former smoker alcohol intake: current Smoking Status: Former smoker alcohol intake frequency: holidays/special occasions only Exam <Maribel Sebastian PA-C - Last Filed: 08/14/24 17:07> Narrative Exam Narrative: Const General:?cooperative, healthy appearing and comfortable [facility] Head:?normal to inspection Ears:?hearing grossly normal bilaterally Nose:?external nose normal Face and sinus:?normal facial exam and sinuses nontender Mouth:?oral mucosae normal Throat:?posterior oropharynx normal Eyes General:?appearance normal, both eyes and all related structures Neck Neck:?normal visual inspection and no lymphadenopathy noted Resp Effort & Inspection:?normal respiratory effort Auscultation:?clear to auscultation bilaterally Cardio Rate:?regular rate Rhythm:?regular rhythm Musculoskeletal Patient is using a cane for ambulation due to the pain. There is a bruise to the right, medial upper thigh. No palpable hematomas. No deformities, erythema. Neurovascularly intact Neuro General:?patient alert, patient awake and patient oriented x3 Initial Vital Signs Initial Vital Signs: Vital Signs Temperature 98.5 F 08/14/24 13:39 Pulse Rate 63 08/14/24 13:39 Respiratory Rate 17 08/14/24 13:39 Blood Pressure 130/77 08/14/24 13:39 Pulse Oximetry 96 08/14/24 13:39 Oxygen Delivery Method Room Air 08/14/24 13:39 <Marjorie Prakash DO - Last Filed: 08/16/24 23:24> Initial Vital Signs Initial Vital Signs: Vital Signs Temperature 98.5 F 08/14/24 13:39 Pulse Rate 63 08/14/24 13:39 Respiratory Rate 17 08/14/24 13:39 Blood Pressure 130/77 08/14/24 13:39 Pulse Oximetry 96 08/14/24 13:39 Oxygen Delivery Method Room Air 08/14/24 13:39 Course <Maribel Sebastian PA-C - Last Filed: 08/14/24 17:07> Orders Ordered: ED Orders 08/14/24 13:46 XR hip w pel if done RT 2V Stat 08/14/24 14:52 US periph venous low extrem rt Stat Vital Signs Vital signs: Vital Signs - 8 hr 08/14/24 13:39 Temperature 98.5 F Pulse Rate 63 Respiratory Rate 17 Blood Pressure 130/77 Pulse Oximetry 96 Oxygen Delivery Method Room Air <Marjorie Prakash DO - Last Filed: 08/16/24 23:24> Orders Ordered: ED Orders 08/14/24 13:46 XR hip w pel if done RT 2V Stat 08/14/24 14:52 US periph venous low extrem rt Stat Vital Signs Vital signs: Vital Signs - 8 hr 08/14/24 13:39 Temperature 98.5 F Pulse Rate 63 Respiratory Rate 17 Blood Pressure 130/77 Pulse Oximetry 96 Oxygen Delivery Method Room Air MDM - Extremity (Nontraumatic) <Maribel Sebastian PA-C - Last Filed: 08/14/24 17:07> MDM Narrative Medical decision making narrative: 64-year-old female with past medical history congenital dysplasia of hips, chron ic back pain with sciatica, atherosclerosis, hyperlipidemia, hypertension presents to the ED with 10 days of right-sided groin and leg pain. Concern for fracture/dislocation versus DVT versus musculoskeletal sprain/strain versus other. X-ray of the hip and pelvis was obtained with no acute findings. X-ray does show some mild bilateral hip osteoarthritis. Ultrasound with no findings of lower extremity DVT. Discussed findings with patient that your symptoms are most consistent with a musculoskeletal sprain/strain. Recommend follow-up with PCP as soon as possible. Recommend PT. ED return precautions discussed with patient. Patient verbalized understanding. Medical records reviewed: Yes Discharge Plan Departure Patient Disposition: Home Clinical Impression: Groin pain Qualifiers: Laterality: right Qualified Code(s): R10.31 - Right lower quadrant pain Instructions: DI for Groin Strain Activity Restrictions/Additional Instructions: You were evaluated in the ED today for right-sided leg and groin pain. Your x- ray and ultrasound were normal. Your symptoms are most consistent with a musculoskeletal sprain/strain. You may take Tylenol, ibuprofen for pain. Please follow-up with your PCP for further evaluation. Return to the ED if you have worsening symptoms. Prescriptions: No Action ursodiol 500 mg tablet 500 mg PO BID latanoprost 0.005 % drops 1 drp EYE-BOTH QPM cyclosporine 0.05 % dropperette ophthalmic (eye) Patient Comments: [NO ORIGINAL SIG] losartan 50 mg tablet 50 mg PO DAILY Qty: 90 3RF omeprazole 40 mg capsule,delayed release(DR/EC) 40 mg PO DAILY Qty: 90 2RF amlodipine 5 mg tablet 5 mg PO BID Qty: 180 0RF gabapentin 300 mg capsule 300 mg PO TID Qty: 90 1RF hydrochlorothiazide 25 mg tablet 25 mg PO DAILY Qty: 90 1RF Repatha SureClick 140 mg/mL pen injector 140 mg SUBCUT Q2W Referrals: Matt Robbins DO [Primary Care Provider] - Stand Alone Forms: Patient Portal/API/Survey ED Sign-out <Marjorie Prakash DO - Last Filed: 08/16/24 23:24> Cosign ED Attending Cosisraature Attestation: I was available for consultation.
--- NOTE | 2024-08-14 14:52 | DI.US.S_ITS ---
PROCEDURE: US PERIPH VENOUS LOW EXTREM RT INDICATIONS: right groin pain TECHNIQUE: Real-time imaging, as well as color and pulse Doppler interrogation, were performed of the lower extremity deep veins from the inguinal ligament to the popliteal fossa, with documentation of the visualized calf veins. COMPARISON: None. FINDINGS: The common femoral, femoral, popliteal, and the visualized calf veins are normally compressible, and free of intraluminal thrombus. Color and pulse Doppler demonstrate normal phasic intraluminal flow. There is normal augmentation response to distal compression maneuver. IMPRESSION: No findings of lower extremity deep venous thrombosis. Dictated by: Rayshawn Desouza M.D. on 08/14/2024 at 15:43 Approved by: Rayshawn Desouza M.D. on 08/14/2024 at 15:43
[2024-08-14 16:14] VITALS: BP 143/75; PULSE 63; RESP 17; O2SAT 97
== END 2024-08-14 16:16 | disposition home or self-care (01) ==
PROVIDERS: Emergency Provider Student in an Organized Health Care Education/Training Program; PCP Family Medicine
DX: R10.31 Right lower quadrant pain (principal); M79.604 Pain in right leg
CPT/HCPCS: 73502; 93971; 99281; 99283

== ENCOUNTER → 2024-08-23 11:43 | Outpatient (CLI) | payer MEDICARE, BC, OTHER, SELFPAY ==
--- NOTE | 2024-08-23 11:46 | DI.RAD.S_ITS ---
PROCEDURE: XR LUMBAR SPINE 5V INDICATIONS: BACK PAIN TECHNIQUE: 5 views of the lumbar spine were acquired, including bilateral oblique views. COMPARISON: None. FINDINGS: Bones: 5 nonrib-bearing vertebrae are present. Mild dextroscoliosis is noted on the frontal image some of which may be artifact from positioning. Incidental note is made of postoperative changes ORIF with 5 fixation pins left iliac bone, left superior acetabulum. Moderate degenerative changes of the left hip are noted with osteophytes, some remottling of the acetabulum and left femoral head. Iiun-bo-scrzrloe degenerative changes of the right hip and sacroiliac joints. Degenerative changes lower lumbar spine with disc space narrowing, facet osseous hypertrophic changes from L3-4, L4-5 and L5-S1. Associated cmyr-go-wdeoeudn bilateral neural foraminal narrowing at these levels. No radiographic evidence of fracture or subluxation. There is normal bony alignment. No vertebral body compression fractures. No suspicious bony lesions. IMPRESSION: Degenerative changes lower lumbar spine and hips as discussed above. No radiographic evidence of fracture or subluxation. Postoperative changes left iliac bone left acetabulum. If symptoms persist or worsen, or there is high clinical suspicion of lumbar abnormality, MRI could be performed. Dictated by: Vick Hollingsworth M.D. on 08/23/2024 at 12:53 Approved by: Vick Hollingsworth M.D. on 08/23/2024 at 12:58
== END ==
PROVIDERS: PCP Family Medicine; Referring Provider Physical Medicine & Rehabilitation; Visit Provider Physical Medicine & Rehabilitation
DX: M47.816 Spondylosis without myelopathy or radiculopathy, lumbar region (principal); M47.817 Spondylosis without myelopathy or radiculopathy, lumbosacral region; M54.9 Dorsalgia, unspecified
CPT/HCPCS: 72110

== ENCOUNTER 2024-09-07 14:53 | Outpatient (CLI) | payer MEDICARE, BC, OTHER, SELFPAY ==
[2024-09-07] VITALS (8 sets, daily range): BP systolic 109–131; BP diastolic 68–80; PULSE 63–80; RESP 16–19; TEMP 36.6; O2SAT 95–99
[2024-09-07] MEDS: MIDAZOLAM 2 MG/2 ML VIAL IV (16:15)
[2024-09-07] MEDS: BETAMETHASONE 30 MG/5 ML MDV 12 MG INJ (16:19)
[2024-09-07] MEDS: BUPIVACAINE 0.25% (PF) VIAL 2 ML INJ (16:19)
[2024-09-07] MEDS: DEXAMETHASONE 10 MG/ML VIAL INJ (16:19)
[2024-09-07] MEDS: iopamidoL 15 ML VIAL 3 ML INJ (16:20)
--- NOTE | 2024-09-07 16:38 | P.PCN_ITS ---
Date/Time/Diagnoses Date of procedure: 09/07/24 Time of procedure: 16:38 Pre-procedure diagnosis: FORAMINAL STENOSIS WITH LE SYMPTOMS Post-procedure diagnosis: same Procedure Notes Procedure: 1. FLUOROSCOPICALLY GUIDED CONTRAST CONTROLLED TRANSFORAMINAL EPIDURAL STEROID INJECTION - RIGHT L5/S1 TFESI Indications: Fay is referred by Dr. Robbins for treatment of Foraminal Stenosis with Right LE Symptoms Physician: Jethro Norris Total Fluoroscopy time (seconds): 13 Total sedation minutes: 17 Complications: none Procedure in detail & Post-procedure care: FINDINGS Foraminal Nerve Root Compression secondary to disc disease and facet hypertrophy DESCRIPTION OF PROCEDURE Following review of allergy and review of potential side effects and complications, including, but not necessarily limited to, infection, allergic reaction, local tissue breakdown, stroke, temporary or permanent nerve injury, paralysis, and possible , the patient indicated that the patient understood and agreed to proceed. An informed consent document was signed by the patient, witnessed by a nurse, and placed in the patient's chart. Additionally, other treatment options including medications, modalities, and physical therapy were reviewed with the patient. After review of previous anaesthesic history and IV conscious sedation the patient was deemed safe to proceed with today?s procedure with IV conscious sedation as ASA class II designation. Safety time-out was performed to confirm patient ID, procedure to be performed and site of procedure. IV sedation was accomplished with a combination of 2mg of Versed was administered by the RN after DO order, titrated to patient comfort during the course of the procedure while the patient remained responsive to all verbal commands In the prone position following sterile prep and drape of the lumbar region, the right L5/S1 posterior neuroforamen was identified fluoroscopically. The skin was anesthetized via a 25-gauge 1.5-inch needle with 1% lidocaine solution. At this point, a 25-gauge 3.5-inch spinal needle was atraumatically introduced and advanced under fluoroscopic guidance through the posterior right L5/S1 neuroforamen to approximately the anterior aspect of the canal. Depth was confirmed on lateral view. Following negative aspiration, injection of approximately 1.5cc of Isovue 200 under live fluoroscopy in the AP view confirmed excellent flow along the nerve root, into the epidural space without vascular or intrathecal uptake observed Radiological data, including multiple fluoroscopic views of the lumbosacral spine, reveal a spinal needle at the right L5/S1 posterior neuroforamen. Subsequent views show flow of contrast material flowing superiorly and inferiorly along the nerve root confirming epidural flow. Subsequently, a test dose of 1.5 cc of 1% lidocaine solution was administered and patient was observed for two minutes for signs or symptoms of complications, including abdominal pain, shortness of breath, bilateral upper or lower extremity weakness, nausea and vomiting, prior to steroid injection. At this point, a total of 3cc or 10mg of dexamethasone and 12mg of betamethasone was injected without incident. The procedure tolerated the procedure well without signs or symptoms of complications prior to transfer to the recovery area continued monitoring without incident. The patient was then transferred to the recovery area where they were observed for an appropriate time after the injection. The patient reported a VAS score of 7 prior to the procedure and a post- procedure VAS of 0. POST OP INSTRUCTIONS The patient was provided a Pain Log to continue to record their response to the target-specific procedure prior to follow-up visit with their referring physician. Additionally, specific post-injection care instructions and a contact number to our office were provided if concerns arise regarding possible complications associated with the procedure are suspected.
== END 2024-09-07 16:49 | disposition home or self-care (01) ==
PROVIDERS: PCP Family Medicine; Referring Provider Physical Medicine & Rehabilitation; Visit Provider Physical Medicine & Rehabilitation
DX: M51.17 Intervertebral disc disorders with radiculopathy, lumbosacral region (principal); M16.0 Bilateral primary osteoarthritis of hip
CPT/HCPCS: 64483; 99152; J0702; J1100; J2250; J3490

== ENCOUNTER → 2024-09-29 14:26 | Outpatient (CLI) | payer MEDICARE, BC, OTHER, SELFPAY ==
--- NOTE | 2024-09-29 14:28 | DI.MG.S_ITS ---
MM screening mammo BI: 09/29/2024. BI-RADS: 2 CLINICAL: 64-year old female for bilateral screening mammogram. Tyrer-Cuzick lifetime risk of 3.5%. No personal or first-degree family history of breast cancer. The patient had a prior left breast biopsy. PRIOR EXAMS 09/22/2023, 08/27/2022, 06/24/2020. MAMMOGRAPHY TECHNIQUE: 2D and 3D (tomosynthesis) digital mammographic views obtained, with additional images as needed for full coverage. Current study was also evaluated with a Computer Aided Detection (CAD) system. DENSITY B. There are scattered areas of fibroglandular density. MAMMOGRAPHY FINDINGS Right: No suspicious mass, asymmetry, microcalcification, or other abnormality seen. Left: Biopsy marker present on the left. There are no suspicious masses, calcifications, or other findings in the breast. IMPRESSION: Right * No evidence of malignancy. Left * No evidence of malignancy with benign findings. RECOMMENDATIONS Bilateral * Annual screening mammography. OVERALL ASSESSMENT CATEGORY BI-RADS-2: Benign. The [employer] recommends annual screening mammography beginning at age 40 for women with average risk of breast cancer. ELECTRONICALLY SIGNED: Kvng Sylvester M.D. on 10/02/2024 at 03:10:03 PM PT Interpreting Station ID: [id number]
--- NOTE | 2024-09-29 14:28 | DI.CT.S_ITS ---
PROCEDURE: CT LUNG LOW DOSE SCREENING INDICATIONS: 40 pack yr history TECHNIQUE: Noncontrast 2.0-2.5 mm thick sections acquired from the pulmonary apices to the posterior costophrenic angles. 7 mm thick axial MIP, and 5 mm coronal and sagittal reformats were then acquired. For radiation dose reduction, the following was used: automated exposure control, adjustment of mA and/or kV according to patient size. COMPARISON: [facility], CT, CT LUNG LOW DOSE SCREENING, 09/22/2023, 7:37. FINDINGS: Image quality: Diagnostic. Lower Neck: No enlarged lymph nodes. Thyroid: No thyroid nodules which require sonographic follow up, per consensus guidelines. Axillae: No enlarged lymph nodes. Chest Wall: Unremarkable. Bones: Unremarkable. Lungs and Pleura: No pneumothorax or pleural effusions. No consolidation or suspicious nodules. Heart: Heart size is normal. No pericardial effusion. Thoracic Vessels: The aorta and pulmonary arteries demonstrate normal size. Mediastinum and Nusrat: No enlarged lymph nodes. Esophagus: No wall thickening. No hiatal hernia. Upper Abdomen: Visualized upper abdomen solid organs and bowel loops appear normal. IMPRESSION: No suspicious pulmonary nodules. LUNG-RADS 1; continued annual screening, if eligible. Clinically Significant Non-pulmonary Findings: Moderate coronary artery calcifications again noted. Dictated by: Reji Kidd M.D. on 09/29/2024 at 16:21 Approved by: Reji Kidd M.D. on 09/29/2024 at 16:23
--- NOTE | 2024-09-29 14:28 | DI.RAD.S_ITS ---
PROCEDURE: XR DEXA AXIAL SKELETON INDICATIONS: postmenopausal, hx of smoking COMPARISON: None. FINDINGS: Lumbar Spine: Bone mineral density 0.862 g/cm2, T score -1.7, osteopenia. Right Femoral Neck: Bone mineral density 0.578 g/cm2, T score -2.4, osteopenia. Right Hip: Bone mineral density 0.741 g/cm2, T score -1.6, osteopenia,. Fracture Risk Calculation (when applicable): 10-year fracture risk of a major osteoporotic fracture 12 percent and of a hip fracture 2.2 percent. (T score greater or equal to -1.0 to: NORMAL) (T score from -1.1 to -2.4: OSTEOPENIA) (T score less than or equal to -2.5: OSTEOPOROSIS) IMPRESSION: Osteopenia elevates the patient's 10 year fracture risk as described. Follow-up guidelines as follows: Osteoporosis: Consider a repeat DEXA and Vertebral Fracture Assessment (VFA) exam in 2 years or sooner if medically necessary, to reassess this patient's status. Osteopenia: Consider a repeat DEXA in 2-3 years to reassess this patient's status, or if there is a new clinical indication. Normal: Consider a repeat DEXA in 5 years or sooner, or if there is a new clinical indication. All treatment decisions require clinical judgment and consideration of individual patient factors, including patient preferences, comorbidities, previous drug use, risk factors not captured in the FRAX model (e.g., frailty, falls, vitamin D deficiency, increased bone turnover, interval significant decline in bone density ) and possible under- or over-estimation of fracture risk by FRAX. In addition, the NOF Guide recommends that FDA-approved medical therapies be considered in postmenopausal women and men age >= 50 years with a: * Hip or vertebral (clinical or morphometric) fracture * T-score of <=-2.5 at the spine or hip * Ten-year fracture probability by FRAX of >= 3% for hip fracture or >=20% for major osteoporotic fracture. Dictated by: Maegan Cooper M.D. on 10/01/2024 at 8:16 Approved by: Maegan Cooper M.D. on 10/01/2024 at 8:17
== END ==
PROVIDERS: PCP Family Medicine; Referring Provider Family Medicine; Visit Provider Family Medicine
DX: Z12.2 Encounter for screening for malignant neoplasm of respiratory organs (principal); Z87.891 Personal history of nicotine dependence; Z12.31 Encounter for screening mammogram for malignant neoplasm of breast; I25.10 Atherosclerotic heart disease of native coronary artery without angina pectoris; M85.89 Other specified disorders of bone density and structure, multiple sites; Z78.0 Asymptomatic menopausal state
CPT/HCPCS: 71271; 77063; 77067; 77080

== ENCOUNTER → 2024-10-02 07:51 | Outpatient (CLI) | payer MEDICARE, BC, OTHER, SELFPAY ==
[2024-10-02 08:59] LABS: Add Manual Diff / Slide Review NO; Basophils Absolute Auto 100 /uL (0-100); Basophils Percent Auto 1.7 % (0-2); Eosinophils Absolute Auto 200 /uL (0-450); Hematocrit 38.8 % (36-46); Hemoglobin 12.8 g/dL (12.0-16.0); Lymphocytes Absolute Auto 2600 /uL (1100-4500); Lymphocytes Percent Auto 36.7 % (25-40); Mean Corpuscular Hemoglobin 29.5 PG (26-34); Mean Corpuscular Volume 89.5 fL (80-100); Monocytes Absolute Auto 500 /uL (0-900); Monocytes Percent Auto 6.8 % (3-14); Neutrophils Absolute Auto 3700 /uL (1500-7000); Neutrophils Percent Auto 51.8 % (50-75); Platelet Count 285 X10^3/uL (150-400); Red Blood Cell Count 4.34 X10^6/uL (4.0-5.2); Red Cell Distribution Width 14.3 % (11.6-14.8); White Blood Cell Count 7.2 X10^3/uL (4.5-11.0)
[2024-10-02 09:07] LABS: Hemoglobin A1C% w Est Avg Glu 5.2 % (4.0-6.0)
[2024-10-02 09:15] LABS: Alanine Aminotransferase 15 IU/L (<35); Albumin 4.3 g/dL (3.5-5.0); Albumin Globulin Ratio 1.7 (1.0-2.8); Alkaline Phosphatase 65 U/L (38-126); Aspartate Aminotransferase 26 IU/L (14-36); Bilirubin Total 0.6 mg/dL (0.2-1.3); Blood Urea Nitrogen 12 mg/dL (7-17); Calcium 9.7 mg/dL (8.4-10.2); Carbon Dioxide 31 mmol/L (22-32); Chloride 97 mmol/L (98-107); Cholesterol 171 mg/dL (140-199); Estimated Glomerular Filt Rate > 60 mL/min (>60); Globulin 2.6 g/dL (1.7-4.1); Glucose 91 mg/dL (70-99); HDL Cholesterol 74 mg/dL (40-60); HEMOLYSIS < 15 (0-50); LDL Cholesterol Calculated 72 mg/dL (<100); Potassium 4.3 mmol/L (3.4-5.1); Sodium 134 mmol/L (137-145); Total Protein 6.9 g/dL (6.3-8.2); Triglycerides 125 mg/dL (35-150)
== END ==
LOC: LAB 07:52
PROVIDERS: PCP Family Medicine; Referring Provider Family Medicine; Visit Provider Family Medicine
DX: Z00.00 Encounter for general adult medical examination without abnormal findings (principal); K21.9 Gastro-esophageal reflux disease without esophagitis; E78.5 Hyperlipidemia, unspecified; I10 Essential (primary) hypertension; Z87.891 Personal history of nicotine dependence
CPT/HCPCS: 36415; 80053; 80061; 83036; 84443; 85025

== ENCOUNTER → 2024-10-26 13:16 | Outpatient (CLI) | payer MEDICARE, BC, OTHER, SELFPAY ==
--- NOTE | 2024-10-26 13:18 | DI.MRI.S_ITS ---
PROCEDURE: MR HIP RT WO CON INDICATIONS: right hip pain TECHNIQUE: Noncontrast coronal T1 spin echo and STIR through the bony pelvis. Coronal and axial T2 fast spin echo with fat saturation, sagittal T1 spin echo, and oblique axial T2 fast spin echo with fat saturation through the hip. COMPARISON: [facility], CR, XR HIP W PEL IF DONE RT 2V, 08/14/2024, 13:58. [facility], CR, XR LUMBAR SPINE MIN 4V, 08/23/2024, 12:09. [facility], CR, XR DEXA AXIAL SKELETON, 09/29/2024, 14:57. FINDINGS: Image quality: Diagnostic. Bones and joints: Susceptibility artifacts are noted in left hemipelvis from prior surgery slightly limits the evaluation. Moderate right hip joint osteoarthritic changes are seen with joint space narrowing, subchondral sclerosis and small marginal osteophyte formation. Marrow edema and subcortical cystic area involving right acetabular roof likely represent osteochondral injury in this area. No acute fracture or dislocation. No avascular necrosis of femoral heads. Degenerative disc disease in visualized lower lumbar spine is seen. Tendons and ligaments: Mild distal right gluteus medius and minimus tendinosis at their insertions on greater trochanter is seen. The nearby proximal iliotibial band also appears intact. The iliopsoas tendon appears intact, without adjacent bursal fluid collections or evidence for impingement syndrome. The origin of the hamstring tendon is intact at the ischial tuberosity. Labrum and cartilage: Diffuse thinning of articulating cartilage over right femoral head is seen. Extensive signal abnormality and fraying throughout left superior acetabular labrum with adjacent cystic structure measures 2.3 x 1.8 cm in size suggestive of extensive left superior acetabular labral tear and perilabral cyst. Soft tissues: Mild edema involving right quadratus femorals muscle which could represent very mild ischiofemoral impingement. The proximal sciatic neurovascular bundle appears normal adjacent to the hamstring tendons. No free pelvic fluid. Bladder wall thickness is normal. Genitourinary structures and bowel loops appear normal where visualized. IMPRESSION: 1. Moderate right hip joint osteoarthritis. No acute fracture or dislocation. No evidence of avascular necrosis of femoral head. 2. Suggestion of extensive right superior acetabular labral tear with adjacent perilabral cyst as above. 3. Distal right gluteus medius and minimus tendinosis. Mild edema involving right quadratus femorals muscle concerning for mild ischial femoral impingement. No other muscle or tendon signal abnormalities. Dictated by: Ba Christie M.D. on 10/26/2024 at 15:17 Approved by: Ba Christie M.D. on 10/26/2024 at 15:22
== END ==
PROVIDERS: PCP Family Medicine; Referring Provider Family Medicine; Visit Provider Family Medicine
DX: Q65.89 Other specified congenital deformities of hip (principal); M16.11 Unilateral primary osteoarthritis, right hip; M25.551 Pain in right hip
CPT/HCPCS: 73721

== ENCOUNTER → 2025-05-05 07:56 | Outpatient (CLI) | payer MEDICARE, BC, OTHER, SELFPAY ==
[2025-05-05 10:34] LABS: Blood Urea Nitrogen 14 mg/dL (7-17); Calcium 9.8 mg/dL (8.4-10.2); Carbon Dioxide 31 mmol/L (22-32); Chloride 97 mmol/L (98-107); Estimated Glomerular Filt Rate > 60 mL/min (>60); Glucose 84 mg/dL (70-99); HEMOLYSIS < 15 (0-50); Potassium 4.2 mmol/L (3.4-5.1); Sodium 136 mmol/L (137-145)
== END ==
PROVIDERS: PCP Family Medicine; Referring Provider Physician Assistant Surgical; Visit Provider Physician Assistant Surgical
DX: M16.11 Unilateral primary osteoarthritis, right hip (principal)
CPT/HCPCS: 36415; 80048

== ENCOUNTER 2025-05-14 10:22 | Day surgery (SDC) | payer MEDICARE, BC, OTHER, SELFPAY ==
[2025-05-08 08:52] VITALS: BMI 26.6
[2025-05-14] VITALS (10 sets, daily range): BP systolic 108–130; BP diastolic 60–81; PULSE 60–117; RESP 11–29; TEMP 36.6–37.2; O2SAT 97–100; BMI 27.1
--- NOTE | 2025-05-14 | DI.RAD.S_ITS ---
PROCEDURE: XR HIP W PEL IF DONE RT 2V INDICATIONS: RT TOTAL HIP TECHNIQUE: Fluoroscopic images were obtained during a procedure and submitted for interpretation following completion of the procedure. FINDINGS / IMPRESSION: Fluoroscopic spot images were performed intraoperatively demonstrating steps to completion of a right total hip arthroplasty and submitted for interpretation following completion of the procedure. Please correlate with the intra procedural record in the electronic medical record. Dictated by: Macho Carrero M.D. on 05/14/2025 at 20:56 Approved by: Macho Carrero M.D. on 05/14/2025 at 20:56
--- NOTE | 2025-05-14 06:00 | DI.RAD.S_ITS ---
PROCEDURE: XR HIP W PEL IF DONE RT 2V INDICATIONS: Implant placement TECHNIQUE: 2 view(s) of the hip acquired. COMPARISON: [facility], CR, XR HIP W PEL RT 2V, 05/14/2025, 14:55. [facility], CR, XR HIP W PEL IF DONE RT 2V, 08/14/2024, 13:58. FINDINGS: Bones: Patient is status post right hip arthroplasty, with hardware components in expected positions. The hip joint appears congruent. The visualized bony structures appear intact. Soft tissues: Overlying postoperative changes are noted. No suspicious soft tissue densities. IMPRESSION: Expected post-operative appearance of a hip arthroplasty. Dictated by: Rayshawn Desouza M.D. on 05/14/2025 at 16:49 Approved by: Rayshawn Desouza M.D. on 05/14/2025 at 16:50
--- NOTE | 2025-05-14 11:25 | PM.PREOP ---
Pre-operative Note Interval Note History & Physical reviewed/Exam performed by Physician: Yes Changes to H&P: No
[2025-05-14] MEDS: ACETAMINOPHEN 325 MG TABLET 975 MG PO (11:56)
[2025-05-14] MEDS: LACTATED RINGERS 1,000 ML 42 ML IV ×2 (11:58→15:38)
[2025-05-14] MEDS: SCOPOLAMINE 1 PATCH TOP (13:09)
[2025-05-14] MEDS: TRANEXAMIC ACID 1,000 MG in SODIUM CHLORIDE 0.9% 100 ML 200 MG IV ×2 (14:25→15:36)
--- NOTE | 2025-05-14 14:35 | SUR.OPER ---
Supine on padded [place] table with bilateral legs secured in padded positioning boots and suspended in positioning spars, operative leg in traction per surgeon. Head on one pillow. Bilateral arms secured on padded armboards <90 degrees abduction. Padded perineal post in place per surgeon.
[2025-05-14] MEDS: KETOROLAC 30 MG/ML VIAL 15 MG INJ (14:46)
--- NOTE | 2025-05-14 15:46 | P.OP_ITS ---
Operative Date/Time/Diagnoses Date of procedure: 05/14/25 Time of procedure: 14:30 Pre-op diagnosis: Right hip osteoarthritis Post-op diagnosis: same Procedure & Clinicians Procedure: Right total hip arthroplasty Same procedure(s) as scheduled: Yes Surgeon: Juanjo Amaya Assisted?: Yes Steam Box Tender: Glendy Ding Anesthesia Type: Spinal, Sedation and Local Operative Notes Findings: Severe arthritis Closure Type: primary Specimen(s): none sent Applied: implant(s) Estimated Blood Loss (mL): 250 Procedure in detail: 1. Right Uncemented Direct Anterior Tatiana Total Hip Arthroplasty (43930) 2. Computer-Assisted Musculoskeletal Surgical Navigational Orthopedic Procedure Using Fluoroscopic Image Guidance (0054T) Implants: * G7 PPS size 50 cup? * Z1 femoral stem size 4 standard offset? * 36 mm +7 ceramic femoral head? Procedure Summary: This 64-year-old female patient has multiple pain generators in the vicinity of her hip. She has pain which is localized to her lumbar spine, sacrum, greater trochanter all of which are distinct from reproducible pain with manipulation of her right hip. Her right hip pain corresponded to severe changes on an MRI which included a large labral tear and significant subchondral edema in the a cetabulum. With regards to her multifocal pain I counseled her extensively that a total hip arthroplasty would not eradicate all of the pain in the vicinity of this hip. I would still anticipate she would have pain generators from those other areas after surgery. Additionally, she has a history of a PADDY on her contralateral hip with arthritic changes there as well and shortening on the left side. I offered to replace the hip but she was emphatic that it does not hurt at this time and that her right hip causes her more disability. Because of the shortening on the left side I counseled her that I would not be able to correct her limb length discrepancy and recommended that she begin utilizing a shoe lift prior to surgery which I will recommend she continue to use afterwards. Understanding the limitations of the quality of life improvement that I would be able to provide her with a right total hip arthroplasty as well as the risks and benefits of the surgery and in the context of a right hip that was reproducibly painful on examination she elected to move forward with surgery. Intraoperatively today I noted that her bone quality was below average for a woman of her age so I did release the conjoined tendon in order to limit tension on the greater trochanter postoperatively. I was able to achieve a robust pinch fit with a 50 mm cup which did not necessitate screws for fixation and allowed utilization of a 36 mm head. I attempted to utilize a-3.5 head and subsequently a 0 and +3.5 head in order to limit her postoperative limb length discrepancy but she had instability with all of these so I eventually implanted a +7 head. She had excellent stability with that construct Procedure in Detail: This patient was seen preoperatively and evaluated for hip pain which was refractory to numerous nonoperative treatment modalities. Their hip pain correlated with radiographic changes demonstrating significant degeneration in the hip joint. The risks and benefits of continued nonoperative management versus operative management were discussed at length and all of the patient?s questions were answered. Additional educational materials providing further details beyond our discussion in clinic were provided via a publicly available patient education video which included the incidence of medical complications associated with total hip arthroplasty, reasons for revision following total hip arthroplasty, and patient satisfaction rates following total hip arthroplasty. With this understanding of the risks inherent to the procedure, the patient e lected to move forward with operative management. Following preoperative optimization, the patient was scheduled for surgery. The patient was met in the preoperative holding area the day of the procedure and all questions were answered. The patient?s nares were swabbed in order to decolonize them from MRSA. Informed consent was signed and the right limb was marked with indelible ink.? The patient was brought back to the operating room where anesthesia was induced. The patient was transferred to the [place] table and all bony prominences were padded. The operative site was prepped and draped in the usual sterile fashion. Prior to incision, tranexamic acid and cefazolin were administered. Operative templating images were displayed demonstrating the anticipated implant sizes and correct operative extremity. A timeout procedure was performed verifying the patient?s identity, medical comorbidities, allergies, relevant medications, anesthesia type and the surgical plan. All present were in agreement. The assistance of a physician cashier assistant was required for positioning, room setup, soft tissue retraction and wound closure. Without this assistance, the procedure would have been significantly more challenging and time consuming.?? A direct anterior approach to the hip was utilized. This was performed with a longitudinal incision through a Heuter interval. The incision was planned 2 cm distal and 2 cm lateral to the ASIS extending towards the lateral patella, in line with the muscle body of the TFL. Following incision, the subcutaneous tissue was dissected while taking care to avoid injury to the lateral femoral cutaneous nerve. The fascia overlying the TFL was identified by dissecting off the overlying fat and identifying perforating vessels to the TFL. The TFL fascia was incised and dissected away from the medial border of the TFL. A retractor was placed over the superior femoral neck between the abductors and the hip capsule and used to reflect the TFL laterally. A Crosby self-retainer was then placed in the distal aspect of the wound between the TFL and the rectus femoris. This was tensioned to open up the direct anterior interval and the lateral circumflex vessels were identified and coagulated using electrocautery. The floor of the TFL fascia was incised, exposing the pericapsular fat overlying the hip capsule. A second cobra retractor was placed on the inferior femoral neck. A retractor was placed on the anterior wall of the acetabulum and used to tension the reflected head of rectus femoris, which was then released in order to limit soft tissue tension. A capsulotomy was made in the midline of the anterior hip capsule in line with the femoral neck ending at the vastus tubercle. The anterior retractor was removed as soon as the capsulotomy was completed in order to limit the amount of time that a soft tissue retractor remained on the anterior wall and limit tension on the femoral nerve. Tag stitches were placed in the superior and inferior leaflets of the hip capsule. An Anil soft tissue retractor was introduced over the tag stitches and tensioned in the interval between the rectus femoris and the TFL in order to retract and protect those mu scles. The cobra retractors were replaced intracapsularly, with one over the superior neck in the pocket created by the base of the greater trochanter and the other on the femoral head. The capsulotomy was extended laterally to the base of the greater trochanter and medially to the lesser trochanter. This required externally rotating the hip. Once the lesser trochanter had been identified, a neck cut was planned according to measurements from preoperative templating. A ruler was cut at the length measured between the superior aspect of the lesser trochanter and the collar of the prosthesis. This line was extended towards the inferior aspect of the lateral cobra retractor to plan a cut which would leave minimal residual femoral neck laterally. The neck was cut at 60 degrees of external rotation along that line. A second cut was performed to remove a large napkin ring and facilitate head extraction. The napkin ring cut and femoral head were removed.?? A broad anterior wall retractor was placed between the labrum and the anterior capsule so that the anterior capsule would prevent capturing and pinching the femoral nerve anteriorly. An additional retractor was placed on the posterior wall. External rotation and traction were applied through the [place] table so that the cut surface of the femoral neck would not restrict access to the acetabulum. The labrum was excised sharply and the pulvinar was excised with electrocautery to limit bleeding from branches of the obturator artery. Acetabular reamers were selected based on preoperative templating and measurements of the excised fe moral head. These were introduced into the acetabulum. Fluoroscopy was utilized to replicate a standing AP pelvis radiograph by centering over the pelvis, rotating until there was appropriate symmetry between the obturator foramen, and introducing caudal tilt to match the position of the pubic symphysis relative to the sacrococcygeal junction according to the patient?s anatomy. Once satisfied with the reaming depth corresponding to the preoperative template and the pinch fit between the columns, an appropriate sized acetabular cup was selected which would provide 1 mm of press-fit. This cup was introduced and manipulated until appropriate abduction and anteversion angles were obtained with careful attention to appropriate abduction and anteversion angles as evaluated by the position of the cup relative to the anterior and posterior hampton of the acetabulum and the AP fluoroscopy which recreated the patient?s standing radiograph. The cup was impacted into place. Peripheral osteophytes were removed. The acetabular liner was then placed with care to ensure locking of the locking mechanism. Attention was then turned to the femur. All retractors were removed, traction was released, a retractor was placed in the interval between the hip capsule and the gluteus minimus. The lateral capsule was released using electrocautery. Traction was released and a [place] hook was placed posteriorly around the proximal femur at the level of the vastus ridge. The table height was lowered in order to restrict the tension on the anterior structures during hip hyperextension to limit the risk of femoral nerve palsy. With traction off and the hip at 90 degrees of external rotation, the hip was hyperextended and adducted while manually elevating the femur away from the acetabulum with the [place] hook to avoid hooking the greater trochanter on the pelvis. An asymmetric retractor was placed over the calcar and a broad double-pronged retractor was placed over the greater trochanter. The tag stitch capturing the lateral leaflet of the capsule was moved to the medial side, leaving the conjoined and piriformis tendons isolated in the face of the greater trochanter. The hip was externally rotated and elevated. A release of the conjoined tendon was utilized to protect the greater trochanter. The canal was opened with an opening broach and a rasp was used to remove cancellous bone. A rongeur was used to remove the residual lateral bone at the base of the greater trochanter to avoid placing the stem in varus. The femur was then broached to the appropriate sized stem yielding good rotational fit and fill of the canal as well as appropriate version of the stem trial. Neck and head trials were placed, all retractors were removed and the hip was returned to neutral abduction and extension. I then reduced the hip and manually trialed it before changing surgical gloves. Initial trialing was performed with a size 4 broach, a standard offset neck and a -3.5 head. I initially manually externally rotated the hip and found that it immediately dislocated so I upsized to a +0 head which also dislocated. A +3.5 head also dislocated. A +7 head did not. I then locked the hip in 45 degrees of external rotation and dropped it to the floor with traction off which demonstrated no instability. An OrthoGrid overlay image was obtained by matching the abduction angle of the nonoperative hip to the operative hip and overlaying the offset and leg length of the operative side relative to the nonoperative side while matching pelvic morphology. This overlay image demonstrated that the operative side had both increased length and increased offset as compared to the nonoperative side as had been anticipated given her preoperative right greater than left limb length discrepancy. AP and lateral hip fluoroscopic images were obtained to evaluate the broach size which demonstrated good canal fill. The hip was dislocated and I returned to the broaching position. Based on my evaluation during initial trialing I planned to place these implants. The definitive stem was placed and the trunnion was cleaned and dried. I placed a ceramic head onto the trunnion and impacted it into place on the [place] taper.?? All retractors were removed and the hip was reduced. A dilute mixture of betadine and peroxide was used to bathe the soft tissues during final fluoroscopic assessment. Appropriate component positioning was confirmed on an OrthoGrid overlay image comparing the nonoperative side to the operative side. Appropriate stem fill was evaluated on AP and lateral hip radiographs. No previously unrecognized fractures were identified on these radiographs. There was no hip instability with maximum (120?) external rotation as well as a 45 degree drop test. The hip was copiously irrigated with pulse lavage. The capsule was closed with absorbable interrupted suture. The TFL fascia was closed with barbed suture while carefully protecting the lateral femoral cutaneous nerve from entrapment. A mixture of Ropivacaine, Epinephrine and Toradol was infiltrated throughout the soft tissues. The skin was closed with 2-0 and 3-0 sutures. Surgical glue was applied and a soft dressing was placed.??The sponge, instrument and needle counts were reported as being correct at the end of the case.??No obvious complications occurred. The patient was transferred from the [place] table back to a stretcher. The patient emerged from anesthesia without difficulty and was taken to the PACU in a stable condition.? Plan for aftercare: * No hip precautions * Weightbearing as tolerated * Aspirin 81 twice per day for DVT prophylaxis * Anticipate discharge home today * Multimodal pain regimen with no IV opioids ordered * Follow up at [facility] in 2 weeks Complications: none Post-operative Condition: stable Disposition: same day surgery
[2025-05-14] MEDS: ONDANSETRON 4 MG/2 ML INJ IV (16:21)
[2025-05-14] MEDS: METOCLOPRAMIDE 10 MG/2 ML INJ IV (16:24)
[2025-05-14] MEDS: ACETAMINOPHEN 325 MG TABLET 650 MG PO (17:56)
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
--- NOTE | 2025-05-14 18:06 | PC.NURSE ---
This RN was informed by PT that pt passed evaluation, ambulated in hallway, etc (see PT report). Informed MD Secrist per PACU handoff instructions/hearing consultant sheet for possible d/c home. MD Secrist at dinner and unavailable; MD Secrist to reach out to PAs to enter d/c orders. Awaiting discharge. Pt resting comfortably in chair and eating dinner, call light within reach, plan of care continues.
--- NOTE | 2025-05-14 18:54 | PC.NURSE ---
Pt worked with PT, approved by PT for discharged. Notified MD Amaya; PA entered d/c orders. Provided d/c edu on meds, activity, follow up, and symptoms worsening. Pt and spouse stated all questions answered. VSWNL. Removed pt PIV, pt tolerated well. All belongings with patient; no belongings in drawer, pharm, or safe. Pt escorted out via WC by MARITZA Guevara with to [facility].
== END 2025-05-14 18:56 | disposition home or self-care (01) ==
LOC: OR 10:25 → AC 10:26
PROVIDERS: PCP Family Medicine; Referring Provider Orthopaedic Surgery Adult Reconstructive Orthopaedic Surgery; Visit Provider Orthopaedic Surgery Adult Reconstructive Orthopaedic Surgery
PROC: (CPT 27130; principal; 2025-05-14 13:00)
DX: M16.11 Unilateral primary osteoarthritis, right hip (principal); M25.751 Osteophyte, right hip; Z87.891 Personal history of nicotine dependence; K21.9 Gastro-esophageal reflux disease without esophagitis; I10 Essential (primary) hypertension; K74.3 Primary biliary cirrhosis
CPT/HCPCS: 27130; 0054T; 73502; 76000; 82962; 97161; 97530; C1776; J0330; J0689; J1100; J1885; J2405; J2704; J2765; J3010; J7050; J7120